=== PATIENT | female | born 1975 | race African-American/Black ===

== ENCOUNTER 2021-11-03 17:29 | Emergency (ER) | payer OTHER ==
[~2021-11-03] VITALS: Ht 170.2 cm; Wt 72.6 kg
--- NOTE | 2021-11-03 17:31 | NUR ---
Patient is awake, started hitting the staff and cursing loudly and belligerent. Security assistance was called. Patient's respiration:easy, she is moving all her extremities. Per [facility] paramedics report, patient was found naked inside her car.
--- NOTE | 2021-11-03 17:34 | NUR ---
4 point leather restraints are on. Patient is on continuous sPo2 and BP monitoring with alarms set, on & audible.
--- NOTE | 2021-11-03 17:35 | NUR ---
[employer] officers [email or web address].
[2021-11-03] MEDS ORDERED: HALOPERIDOL LACTATE 5 MG/1 ML VIAL ONE (17:41)
[2021-11-03] MEDS ORDERED: diphenhydrAMINE 50 MG/1 ML VIAL ONE (17:41)
[2021-11-03] MEDS ORDERED: LORAZEPAM 2 MG/1 ML VIAL ONE (17:42)
[2021-11-03] MEDS ORDERED: LORAZEPAM 2 MG/1 ML VIAL IM ONE (17:45)
[2021-11-03] MEDS ORDERED: diphenhydrAMINE 50 MG/1 ML VIAL IM ONE (17:45)
[2021-11-03] MEDS ORDERED: HALOPERIDOL LACTATE 5 MG/1 ML VIAL IM ONE (17:45)
[2021-11-03 18:23] LABS: MEAN CORPUSCULAR HEMOGLOBIN 31.8 uug (24.7-32.8); MEAN CORPUSCULAR VOLUME 96.8 fL (75.5-95.3); PLATELET COUNT (AUTO) 193 K/uL (179-408)
[2021-11-03 18:31] LABS: ETHANOL 281 MG/DL (0-0)
[2021-11-03 18:38] LABS: ALANINE AMINOTRANSFERASE 25 U/L (14-59); ALKALINE PHOSPHATASE 53 U/L (50-136); ASPARTATE AMINOTRANSFERASE 18 U/L (15-37); BILIRUBIN,DIRECT 0.1 mg/dL (0.0-0.2); BILIRUBIN,TOTAL 0.1 mg/dL (0.2-1.0); CARBON DIOXIDE 25 mmol/L (21-32); CHLORIDE 104 mmol/L (98-107); CREATININE 0.7 mg/dL (0.6-1.3); GLUCOSE 101 mg/dL (74-106); POTASSIUM 3.5 mmol/L (3.5-5.1); TOTAL PROTEIN, SERUM 6.8 g/dL (6.4-8.2); UREA NITROGEN, BLOOD 19 mg/dL (7-18)
[2021-11-03 18:43] LABS: *BILIRUBIN,URIN NEGATIVE (NEGATIVE); *BLOOD, URINE NEGATIVE (NEGATIVE); *CLARITY,URINE CLEAR (CLEAR); *COLOR,URINE YELLOW (YELLOW); *KETONES,URINE NEGATIVE (NEGATIVE); *UROBILINOGEN,URINE 0.2 E.U./dl (NORMAL); LEUKOCYTE ESTERASE ,URINE NEGATIVE (NEGATIVE); NITRITE, URINE NEGATIVE (NEGATIVE); PH,URINE 5.5 (5.0-8.0); UGLUCOSE NEGATIVE (NEGATIVE)
[2021-11-03 18:44] LABS: ACETAMINOPHEN < 2.0 ug/mL (10-30)
--- NOTE | 2021-11-03 18:49 | NUR ---
Patient is still restless, intermittently screaming/yelling and does not follow simple commands, MD notified.
[2021-11-03 18:51] LABS: *AMPHETAMINE, URINE NEGATIVE (NEGATIVE); *CANNABINOID, URINE POSITIVE (NEGATIVE); *COCCAINE, URINE NEGATIVE (NEGATIVE); *OPIATE, URINE POSITIVE (NEGATIVE); *PHENCYCLIDINE SCREEN,URINE NEGATIVE (NEGATIVE)
--- NOTE | 2021-11-03 18:58 | NUR ---
Dr [email or web address]. Medical exam in progress.
[2021-11-03 18:59] LABS: THYROID STIMULATING HORMONE 0.389 mIU/mL (0.358-3.740)
--- NOTE | 2021-11-03 19:00 | NUR ---
RECEIVED REPORT FROM JASON TERRELL. PT RESTING IN BED, EYES CLOSED, BREATHING EVEN AND UNLABORED. NO FACIAL GRIMACCING.
--- NOTE | 2021-11-03 19:08 | NUR ---
Saray rose in ED - 11/03/21 at [address] HILL ON THE LINE WITH DR. SARAH JOSEPH.
--- NOTE | 2021-11-03 20:15 | NUR ---
OT BEING TAKEN DOWN TO CT.
--- NOTE | 2021-11-03 20:29 | NUR ---
PT RETURNED FROM CT.
--- NOTE | 2021-11-03 22:13 | NUR ---
HARD RESTRAINS DISCONTINUED, PT IS NOTED TO BE ASLEEP, RESTING COMFORTABLY. VSS. BREATHING EVEN AND UNLABORED. SKIN INTACT, NO BRUISING OR REDNESS NOTED. PROVIDED PT WITH CALM AND QUIET ENVIRONMENT. BED IN LOWEST POSITION FOR SAFETY PRECAUTIONS, PT IS CLOSE TO NURSING STATION.
--- NOTE | 2021-11-04 01:35 | NUR ---
PT AMBULATED TO RESTROOM, STEADY GAIT. PO CHALLENGE WELL TOLERATED. NO N/V. DENIES ANY GRIFFITH/DIZZYNESS. A/O X3, CLEAR SPEECH, COMPLETE SENTENCES.
--- NOTE | 2021-11-04 03:34 | NUR ---
PT IN BED RESTING COMFORTABLY, EYES CLOSED. BREATHING EVEN AND UNLABORED.
--- NOTE | 2021-11-04 04:53 | NUR ---
Patient discharged to home in stable condition. Written and verbal after care instructions given. Patient verbalizes understanding of instructions. Stressed follow up or return to ER for worsening s/s. Steady gait. A/O x4, no SOB or labored breathing. Denies any pain/discomfort upon discharge. No N/V/D. Denies any GRIFFITH/dizzyness. Picked up by sister Nanda.
[2021-11-04 05:02] VITALS: BP 120/78
== END 2021-11-04 05:02 | disposition home or self-care (01) ==
LOC: ER 17:32
DX: F10.129 Alcohol abuse with intoxication, unspecified (principal); Y90.8 Blood alcohol level of 240 mg/100 ml or more; I44.0 Atrioventricular block, first degree; C56.9 Malignant neoplasm of unspecified ovary; R41.82 Altered mental status, unspecified; F32.A Depression, unspecified; Z87.440 Personal history of urinary (tract) infections; R91.8 Other nonspecific abnormal finding of lung field
CPT/HCPCS: 36415; 70450; 71045; 80048; 80076; 80299; 80307; 80320; 81003; 82140; 83605; 84443; 84484; 84702; 85025; 85730; 87040 ×2; 87086; 93005; 96372 ×2; 99285; J1200; J1630; J2060; A4663; C1758; G0480